=== PATIENT | male | born 1955 | race Asian ===

== ENCOUNTER 2023-02-05 13:19 | Inpatient (IN) | payer OTHER ==
[~2023-02-05] VITALS: Ht 170.2 cm; Wt 70.8 kg
[2023-02-05 13:40] VITALS: BP_SYST 199; PULSE 80; RESP 20; TEMP 97.8; O2SAT 97
[2023-02-05 14:00] LABS: BASOPHILS % (AUTO) 0.6 % (0.0-2.0); EOSINOPHILS % (AUTO) 0.1 % (0.0-4.0); HEMATOCRIT 30.9 % (36-54); HEMOGLOBIN 10.4 g/dL (14.0-18.0); LYMPHOCYTES # (AUTO) 0.7 K/uL (1.0-5.5); LYMPHOCYTES % (AUTO) 14.1 % (20.5-51.5); MEAN CORPUSCULAR HEMOGLOBIN 28 pg (27-31); MEAN CORPUSCULAR HGB CONC 34 % (32-36); MEAN CORPUSCULAR VOLUME 84 fL (79.0-98.0); MONOCYTES # (AUTO) 0.5 K/uL (0.0-1.0); MONOCYTES % (AUTO) 10.3 % (1.7-9.3); NEUTROPHILS # (AUTO) 3.9 K/uL (1.8-7.7); NEUTROPHILS % (AUTO) 74.9 % (40.0-70.0); PLATELET COUNT (AUTO) 147 K/uL (130-430); RED BLOOD CELL COUNT(AUTO) 3.68 MIL/uL (4.2-6.2); RED CELL DISTRIBUTION WIDTH 13.2 % (9.0-15.0); WHITE BLOOD COUNT (AUTO) 5.2 K/uL (4.8-10.8)
[2023-02-05 14:09] LABS: BILIRUBIN,URINE NEGATIVE (NEGATIVE); BLOOD, URINE 2+ (NEGATIVE); CLARITY/URINE Clear (CLEAR); COLOR,URINE YELLOW (YELLOW); GLUCOSE,URINE 2+ (NEGATIVE); KETONES,URINE NEGATIVE (NEGATIVE); LEUKOCYTE ESTERASE ,URINE NEGATIVE (NEGATIVE); NITRITE, URINE NEGATIVE (NEGATIVE); PROTEIN URINE 3+ (NEGATIVE); UROBILINOGEN,URINE 0.2 (0.2-1.0)
[2023-02-05 14:16] LABS: ANION GAP 7 (5-15); CALCIUM 7.5 mg/dL (8.4-11.0); CARBON DIOXIDE 26 mmol/L (23-29); CHLORIDE 98 mmol/L (98-107); CREATININE 2.61 mg/dL (0.55-1.30); GFR AFRICAN AMERICAN 32 mL/min (>90); GLUCOSE 364 mg/dL (74-106); POTASSIUM 3.9 mmol/L (3.5-5.1); SODIUM SERUM 131 mmol/L (136-145); UREA NITROGEN, BLOOD 32 mg/dL (8-21)
[2023-02-05 14:20] LABS: ACETONE, SERUM NEGATIVE (NEGATIVE); GFR NON AFRICAN-AMERICAN 26 mL/min (>90); PROTHROMBIN TIME 10.3 SECS (9.5-12.5)
[2023-02-05 14:26] LABS: BACTERIA,URINE FEW /HPF (None Seen); WBC,URINE 0-3 /HPF (0-3); YEAST,URINE Rare /HPF (None Seen)
[2023-02-05 14:27] LABS: FINE GRANULAR CASTS,URINE 0-10 /LPF (None Seen); MUCUS,URINE None Seen /LPF (None Seen)
[2023-02-05 14:40] LABS: ALANINE AMINOTRANSFERASE 14 U/L (12-78); ALBUMIN 2.7 g/dL (3.4-4.8); AMYLASE 42 U/L (0-100); ASPARTATE AMINOTRANSFERASE 28 U/L (10-37); LIPASE 81 U/L (73-393); TOTAL BILIRUBIN 0.6 mg/dL (0.0-1.0); TOTAL PROTEIN, SERUM 6.1 g/dL (6.4-8.3)
[2023-02-05] MEDS ORDERED: PANTOPRAZOLE SODIUM 40 MG/VIAL (PROTONIX) IVP ONE (15:15)
[2023-02-05] MEDS ORDERED: NACL 0.9% 1,000 ML IV ONE (15:15)
[2023-02-05] MEDS ORDERED: KETOROLAC TROMETHAMINE 30 MG VIAL IVP ONE (15:15)
[2023-02-05] MEDS ORDERED: ONDANSETRON HCL 4 MG/2 ML VIAL IVP ONE (15:15)
[2023-02-05] MEDS ORDERED: METOCLOPRAMIDE HCL 10 MG/2 ML VIAL IVP ONE (15:45)
[2023-02-05] MEDS ORDERED: INSULIN REGULAR, HUMAN 10 UNITS/0.1 ML, 3 ML VIAL IVP ONE (15:45)
[2023-02-05] MEDS ORDERED: DIPHENHYDRAMINE INJ 50 MG/ML VIAL IVP ONE (15:45)
[2023-02-05] MEDS ORDERED: LISINOPRIL 10 MG TABLET (PRINIVIL) PO ONE (16:15)
[2023-02-05] MEDS ORDERED: NPH,100I SQ (16:58)
[2023-02-05] MEDS ORDERED: LISI40TA13 PO (16:58)
[2023-02-05] MEDS ORDERED: GLIP2.5T3 PO (16:58)
[2023-02-05] MEDS: 0.45% NACL 1,000 ML IV SCH (17:10)
[2023-02-05] MEDS: METOCLOPRAMIDE HCL 10 MG/2 ML VIAL IVP SCH (20:18)
[2023-02-06] MEDS: METOCLOPRAMIDE HCL 10 MG/2 ML VIAL IVP SCH ×4 (00:06→18:28)
[2023-02-06] MEDS: 0.45% NACL 1,000 ML IV SCH ×4 (03:29→23:42)
[2023-02-06] MEDS ORDERED: METOCLOPRAMIDE HCL 10 MG/2 ML VIAL ONE (06:15)
[2023-02-06 08:27] VITALS: O2SAT 94
[2023-02-06 08:45] VITALS: BP_SYST 173; PULSE 74; RESP 16; TEMP 97.2
[2023-02-06 11:09] LABS: CALCIUM 7.5 mg/dL (8.4-11.0); CREATININE 2.54 mg/dL (0.55-1.30); POTASSIUM 4.3 mmol/L (3.5-5.1)
[2023-02-06] MEDS: PANTOPRAZOLE SODIUM 40 MG/VIAL (PROTONIX) IVP SCH (11:27)
[2023-02-06 13:30] VITALS: BP_SYST 183; PULSE 81; RESP 16; TEMP 97; O2SAT 96
[2023-02-06] MEDS ORDERED: INSULIN ASPART 100 UNITS/ML, 10 ML VIAL (NovoLOG) SUBCUT PRN (13:30)
[2023-02-06 16:20] VITALS: BP_SYST 203; PULSE 76; RESP 16; TEMP 97.1; O2SAT 97
[2023-02-06] MEDS: cloNIDine HCL 0.1 MG TABLET PO PRN (18:13)
[2023-02-06] MEDS: INSULIN LISPRO SLIDING SCALE 100 UNITS/ML, 3 ML VIAL (humaLOG) SUBCUT PRN (18:20)
[2023-02-06 19:00] VITALS: O2SAT 98
[2023-02-06 20:00] VITALS: BP_SYST 143; PULSE 63; RESP 18; TEMP 97.8; O2SAT 100
[2023-02-07 04:00] VITALS: BP_SYST 132; PULSE 71; RESP 16; TEMP 97.5; O2SAT 100
[2023-02-07 05:14] LABS: BASOPHILS % (AUTO) 0.5 % (0.0-2.0); EOSINOPHILS # (AUTO) 0.1 K/uL (0.0-0.4); EOSINOPHILS % (AUTO) 1.1 % (0.0-4.0); HEMATOCRIT 29.1 % (36-54); HEMOGLOBIN 9.9 g/dL (14.0-18.0); LYMPHOCYTES # (AUTO) 1.8 K/uL (1.0-5.5); LYMPHOCYTES % (AUTO) 29.6 % (20.5-51.5); MEAN CORPUSCULAR HEMOGLOBIN 28 pg (27-31); MEAN CORPUSCULAR HGB CONC 34 % (32-36); MEAN CORPUSCULAR VOLUME 83 fL (79.0-98.0); MONOCYTES # (AUTO) 0.5 K/uL (0.0-1.0); NEUTROPHILS # (AUTO) 3.7 K/uL (1.8-7.7); NEUTROPHILS % (AUTO) 60.8 % (40.0-70.0); PLATELET COUNT (AUTO) 144 K/uL (130-430); RED BLOOD CELL COUNT(AUTO) 3.51 MIL/uL (4.2-6.2); RED CELL DISTRIBUTION WIDTH 13.1 % (9.0-15.0); WHITE BLOOD COUNT (AUTO) 6.1 K/uL (4.8-10.8)
[2023-02-07 05:48] LABS: CALCIUM 7.1 mg/dL (8.4-11.0); CREATININE 2.17 mg/dL (0.55-1.30); POTASSIUM 3.5 mmol/L (3.5-5.1)
[2023-02-07] MEDS: METOCLOPRAMIDE HCL 10 MG/2 ML VIAL IVP SCH ×4 (06:00→17:06)
[2023-02-07] MEDS: INSULIN LISPRO SLIDING SCALE 100 UNITS/ML, 3 ML VIAL (humaLOG) SUBCUT PRN ×4 (06:47→20:28)
[2023-02-07 08:09] VITALS: BP_SYST 191; PULSE 70; RESP 18; TEMP 98.1; O2SAT 97
[2023-02-07 08:15] VITALS: O2SAT 97
[2023-02-07] MEDS: 0.45% NACL 1,000 ML IV SCH (08:42)
[2023-02-07] MEDS: PANTOPRAZOLE SODIUM 40 MG/VIAL (PROTONIX) IVP SCH (09:00)
[2023-02-07] MEDS: cloNIDine HCL 0.1 MG TABLET PO PRN ×2 (10:42→23:42)
[2023-02-07 12:20] VITALS: BP_SYST 155; PULSE 69; RESP 17; TEMP 97.8; O2SAT 97
[2023-02-07 16:00] VITALS: BP_SYST 149; PULSE 72; RESP 18; TEMP 97.9; O2SAT 98
[2023-02-07 20:00] VITALS: BP_SYST 161; PULSE 80; RESP 17; TEMP 97.3; O2SAT 97
[2023-02-07] MEDS: glipiZIDE XL 5 MG TAB ( GLUCOTROL XL) PO SCH (20:22)
[2023-02-07] MEDS: METOPROLOL SUCCINATE 25 MG TAB.SR.24H (TOPROL XL) PO SCH (20:22)
[2023-02-08] VITALS (9 sets, daily range): BP systolic 158–192; PULSE 66–80; RESP 17–18; TEMP 96.8–98.1; O2SAT 97–98
[2023-02-08] MEDS: METOCLOPRAMIDE HCL 10 MG/2 ML VIAL IVP SCH ×3 (00:20→11:15)
[2023-02-08] MEDS: 0.45% NACL 1,000 ML IV SCH (02:30)
[2023-02-08 04:47] LABS: BASOPHILS % (AUTO) 0.6 % (0.0-2.0); EOSINOPHILS # (AUTO) 0.1 K/uL (0.0-0.4); EOSINOPHILS % (AUTO) 1.3 % (0.0-4.0); HEMATOCRIT 32.3 % (36-54); LYMPHOCYTES % (AUTO) 32.6 % (20.5-51.5); MEAN CORPUSCULAR HEMOGLOBIN 28 pg (27-31); MEAN CORPUSCULAR HGB CONC 34 % (32-36); MEAN CORPUSCULAR VOLUME 83 fL (79.0-98.0); MONOCYTES # (AUTO) 0.4 K/uL (0.0-1.0); MONOCYTES % (AUTO) 5.9 % (1.7-9.3); NEUTROPHILS # (AUTO) 3.7 K/uL (1.8-7.7); NEUTROPHILS % (AUTO) 59.6 % (40.0-70.0); PLATELET COUNT (AUTO) 181 K/uL (130-430); RED BLOOD CELL COUNT(AUTO) 3.89 MIL/uL (4.2-6.2); RED CELL DISTRIBUTION WIDTH 13.4 % (9.0-15.0); WHITE BLOOD COUNT (AUTO) 6.2 K/uL (4.8-10.8)
[2023-02-08 05:08] LABS: CALCIUM 7.7 mg/dL (8.4-11.0); CREATININE 1.9 mg/dL (0.55-1.30); PHOSPHORUS 3.6 mg/dL (2.7-4.5); POTASSIUM 3.6 mmol/L (3.5-5.1)
[2023-02-08] MEDS: PANTOPRAZOLE SODIUM 40 MG/VIAL (PROTONIX) IVP SCH (09:11)
[2023-02-08] MEDS: glipiZIDE XL 5 MG TAB ( GLUCOTROL XL) PO SCH (09:12)
[2023-02-08] MEDS: METOPROLOL SUCCINATE 25 MG TAB.SR.24H (TOPROL XL) PO SCH (09:12)
[2023-02-08] MEDS ORDERED: MAGNESIUM SULFATE 50 ML IV ONE (10:45)
[2023-02-08] MEDS ORDERED: METO-540 PO (10:58)
[2023-02-08] MEDS ORDERED: NIFEdipine 30 MG TAB.ER.24 PO ONE (11:00)
[2023-02-08] MEDS ORDERED: CHOLECALCIFEROL (VITAMIN D3) 5,000 UNIT TABLET PO ONE (11:00)
[2023-02-08] MEDS ORDERED: NIFE-129 PO (11:00)
[2023-02-08] MEDS: cloNIDine HCL 0.1 MG TABLET PO PRN (11:26)
[2023-02-08] MEDS ORDERED: METOPROLOL TARTRATE 25 MG TABLET PO ONE (15:00)
[2023-02-09] MEDS ORDERED: CHOLECALCIFEROL (VITAMIN D3) 5,000 UNIT TABLET PO SCH (09:00)
[2023-02-09] MEDS ORDERED: NIFEdipine 30 MG TAB.ER.24 PO SCH (09:00)
== END 2023-02-08 16:57 | disposition home health service (06) | DRG 74 ==
LOC: SED 13:19 → SMU 16:40
PROVIDERS: ADMIT Specialist; ATTEND Specialist
DX: E11.43 Type 2 diabetes mellitus with diabetic autonomic (poly)neuropathy (principal); N17.9 Acute kidney failure, unspecified; E87.1 Hypo-osmolality and hyponatremia; E11.65 Type 2 diabetes mellitus with hyperglycemia; E83.52 Hypercalcemia; D64.9 Anemia, unspecified; E78.5 Hyperlipidemia, unspecified; N18.9 Chronic kidney disease, unspecified; I12.9 Hypertensive chronic kidney disease with stage 1 through stage 4 chronic kidney disease, or unspecified chronic kidney disease; E11.22 Type 2 diabetes mellitus with diabetic chronic kidney disease; K31.84 Gastroparesis
CPT/HCPCS: 36415; 71045; 76376; 76700-TC; 78264-TC; 80048; 80053; 81000; 82009; 82150; 82570; 82962; 83605; 83690; 83735; 84100; 84302; 84484; 85025; 85610-TC; 85730-TC; 93005; 99285; A9541; C9113; J1200; J1815; J1885; J2405; J2765; J3475; J7030